=== PATIENT | female | born 1960 | race Caucasian/White ===

== ENCOUNTER → 2017-06-08 | Outpatient (CLI) | payer BC ==
[~2017-06-08] MED LIST: ASPI81TA28 PO; CRAN1CAP15 PO; GLUCTAB7 PO; LISI-725 PO; MONT1TAB5 PO; MULTTAB58 PO; NAPR1TAB9 PO; OMEP40CA PO; SIMV20TA2 PO
[2017-06-08 13:08] LABS: BLOOD UREA NITROGEN 17 mg/dl (7-18); CREATININE 0.84 mg/dl (0.60-1.20); GLUCOSE 93 mg/dl (70-99)
[2017-06-08 13:09] LABS: ALT/SGPT 28 U/L (12-78); BUN/CREATININE RATIO 19.6 (10-20); CALCIUM 9.7 mg/dl (8.5-10.1); CARBON DIOXIDE 29 mmol/L (21-32); CHLORIDE 107 mmol/L (98-107); CHOLESTEROL 173 mg/dl (0-200); POTASSIUM 4.4 mmol/L (3.5-5.1); SODIUM 140 mmol/L (136-145); TRIGLYCERIDES 128 mg/dl (0-150); VERY LOW DENSITY LIPOPROT CALC 26 mg/dl
[2017-06-08 13:10] LABS: ALB/GLOB RATIO 1.1 (0.9-2); ALKALINE PHOSPHATASE 81 U/L (45-117); AST/SGOT 19 U/L (15-37); CHOLESTEROL/HDL RATIO 3.7; HDL CHOLESTEROL 47 mg/dl; LDL CHOLESTEROL CALCULATED 100 mg/dl
== END | disposition home or self-care (01) ==
LOC: C.LABPVFM 08:54
PROVIDERS: ATTEND Family Medicine
DX: Z11.59 Encounter for screening for other viral diseases (principal); I10 Essential (primary) hypertension; E78.5 Hyperlipidemia, unspecified; K21.9 Gastro-esophageal reflux disease without esophagitis

== ENCOUNTER → 2017-06-08 | Outpatient (CLI) | payer BC | END | disposition home or self-care (01) | LOC: C.PAPS 13:10 | PROVIDERS: ATTEND Family Medicine | DX: Z12.4 Encounter for screening for malignant neoplasm of cervix (principal) ==

== ENCOUNTER → 2017-07-09 | Outpatient (CLI) | payer BC ==
--- NOTE | 2017-07-12 13:34 | MAMMOGRAPHY REPORT ---
BILATERAL DIGITAL SCREENING MAMMOGRAM TOMOSYNTHESIS WITH CAD: 07/09/2017 CLINICAL HISTORY: Routine screening. Patient has no complaints. TECHNIQUE: Breast tomosynthesis in addition to standard 2D mammography was performed. Current study was also evaluated with a Computer Aided Detection (CAD) system. COMPARISON: Comparison is made to exams dated: 06/11/2015 mammogram, 05/11/2013 mammogram, 02/09/2012 m ammogram, 02/05/2011 ultrasound, 02/05/2011 mammogram, and 01/26/2011 mammogram - [facility] enter. BREAST COMPOSITION: There are scattered areas of fibroglandular density in both breasts. FINDINGS: No suspicious masses, calcifications, or areas of architectural distortion are noted in ei ther breast. There has been no significant interval change compared to prior exams. IMPRESSION: ACR BI-RADS CATEGORY 1: NEGATIVE There is no mammographic evidence of malignancy. A 1 year screening mammogram is recommended. The pa tient will receive written notification of the results. Approximately 10% of breast cancers are not detected with mammography. A negative mammographic report should not delay biopsy if a clinically suggestive mass is present. Ellie Smith M.D. ah/:07/09/2017 16:07:35 Vending Machine Servicer: Kassy DOUGHERTY(Charissa)(James), [facility] letter sent: Normal 1/2 BI-RADS Code: ACR BI-RADS Category 1: Negative
== END | disposition home or self-care (01) ==
LOC: C.MAMM 15:34
PROVIDERS: ATTEND Family Medicine
DX: Z12.31 Encounter for screening mammogram for malignant neoplasm of breast (principal)

== ENCOUNTER 2019-07-18 07:23 | Inpatient (IN) ==
--- NOTE | 2019-06-20 16:16 | PAT Medication Instructions ---
Medication Instructions Date of Service June 20, 2019 Home Medications Medication Instructions Recorded meloxicam 7.5 mg tablet 7.5 mg PO DAILY #90 tab 05/02/19 simvastatin 20 mg tablet 20 mg PO HS #90 tab 05/02/19 cholecalciferol (vitamin D3) 1,000 unit capsule 1,000 units PO DAILY cranberry concentrate-ascorbic acid 140 mg-100 mg capsule 1 cap PO DAILY multivitamin tablet 1 tab PO DAILY meloxicam 7.5 mg tablet 7.5 mg PO DAILY simvastatin 20 mg tablet 20 mg PO HS aspirin [Aspir-81] 81 mg PO Q2D lisinopril 10 mg PO QAM omeprazole 20 mg PO QAM Continue as directed aspirin [Aspir-81] 81 mg PO Q2D ASK your surgeon for instructions meloxicam 7.5 mg tablet 7.5 mg PO DAILY STOP taking 2 weeks before surgery (or as soon as possible if surgery is within 2 weeks) cranberry concentrate-ascorbic acid 140 mg-100 mg capsule 1 cap PO DAILY DO NOT take the morning of surgery cholecalciferol (vitamin D3) 1,000 unit capsule 1,000 units PO DAILY multivitamin tablet 1 tab PO DAILY lisinopril 10 mg PO QAM Take morning of surgery With a small sip of water, OTHERWISE NOTHING TO EAT OR DRINK AFTER MIDNIGHT: omeprazole 20 mg PO QAM Take evening before surgery simvastatin 20 mg tablet 20 mg PO HS Other Notes If you have any questions please call us at [phone] or [phone] or [phone] or [phone]
--- NOTE | 2019-06-21 11:26 | Anesthesiology Consultation ---
Date of Service June 21, 2019 Assessment & Plan (1) Encounter for pre-operative examination: Chart Review Chart Review: Pending: Refer to Additional Notes / Consult section (preop testing) and Patient seen in Pre Admission Testing Teaching & Discussion Pre-Anesthesia Teaching/Discussion Notes: Instructed NPO after midnight before surgery,except medications with 15 cc of water. Medication instructions provided according to the PAT guidelines. History Surgery Operation Date: 07/18/19 07:00 Proposed Procedures p Right Total Knee Arthroplasty - Jamin Nogueira DO Operation Date: 07/21/19 13:50 Proposed Procedures p Right Total Knee Arthroplasty - Jamin Nogueira DO Height/Weight Height: 5 ft 2 in Weight: 108.6 kg Allergies Allergy/AdvReac Type Severity Reaction Status Date / Time Penicillins Allergy Unknown Childhood- Verified 06/21/19 11:25 unknown reaction Medications Home Medications Medication Instructions Recorded Confirmed Last Taken cholecalciferol (vitamin D3) 1,000 1,000 units PO DAILY 04/03/19 06/14/19 Unknown unit capsule cranberry concentrate-ascorbic 1 cap PO DAILY cap 04/03/19 06/14/19 Unknown acid 140 mg-100 mg capsule multivitamin tablet 1 tab PO DAILY 04/03/19 06/14/19 Unknown meloxicam 7.5 mg tablet 7.5 mg PO DAILY #90 tab 05/02/19 06/14/19 Unknown simvastatin 20 mg tablet 20 mg PO HS #90 tab 05/02/19 06/14/19 06/13/19 aspirin [Aspir-81] 81 mg PO Q2D 06/14/19 06/14/19 Unknown lisinopril 10 mg PO QAM 06/14/19 06/14/19 06/14/19 omeprazole 20 mg PO QAM 06/14/19 06/14/19 06/14/19 Past Medical History Medical History Acid reflux controlled Hyperlipidemia Hypertension Morbid obesity Osteoarthritis Schatzki's ring Exercise / Class Metabolic Activity II 4-5 Yardwork/Stairs/Walk up hill Past Family History Family History Aunt Family history of colon cancer Other Family history of heart disease Past Surgical History Surgical History History of appendectomy History of section History of colonoscopy History of endoscopy History of gynecologic surgery FOR ECTOPIC History of laparoscopic cholecystectomy History of urologic surgery URETHRAL DILATION Past Anesthesia History No Hx of Anesthesia Complications and No Family Hx of Anesthesia Complications History of PONV No Hx of PONV and No Hx of Motion Sickness Social History Smoking Status: Never smoker Do You Dip or Chew Tobacco: No Hx Alcohol Use: Yes alcohol intake frequency: a few times a month Hx Substance Use: No substance use type: does not use Review of Systems Reflux controlled. Patient denies chest pain, shortness of breath, dyspnea on exertion, cough, wheezing, palpitations. Physical Exam Vital Signs VITALS BP 113/77 P 67 TEMP 98.2 SP02 94%RA RESP 16 PHYSICAL Full neck and c-spine range of motion. Full TMJ range of motion. TMD 2.5 finger breaths Mallampati Score 3 Dentition: missing molars, upper right side tooth cap Lungs: clear throughout to auscultation Cardiac: regular rate and rhythm, no murmurs noted Spine: normal Carotid arteries: negative bruit Extremities: no edema Thick neck
--- NOTE | 2019-06-21 12:45 | XRay Report ---
XR chest Pre-admission PA/Lat CLINICAL HISTORY: Preoperative chest COMPARISON STUDY: No previous studies for comparison. FINDINGS: The cardiac and mediastinal contours are normal. There is no evidence of focal pulmonary co nsolidation. There is no evidence of failure. No pleural effusions are visualized.[ IMPRESSION: No active disease in the chest. Electronically signed by: Juan Riley M.D. 06/21/2019 12:43 PM
[2019-06-22 17:25] LABS: Basophils # (auto) 0.04 K/uL (0-0.2); Basophils % (auto) 0.6 %; Eosinophils # (auto) 0.25 K/uL (0-0.5); Eosinophils % (auto) 3.6 %; Hematocrit (blood only) 43.4 % (37-47); Hemoglobin 14.7 g/dL (12.0-16.0); Immature Granulocytes # (auto) 0.02 K/uL (0.00-0.02); Immature Granulocytes % (auto) 0.3 %; Lymphocytes # (auto) 2.06 K/uL (1.2-3.4); Lymphocytes % (auto) 29.6 %; Mean Corpuscular Hemoglobin 30.9 pg (25-34); Mean Corpuscular Hgb Conc 33.9 g/dL (32-36); Mean Corpuscular Volume 91.4 fL (80-100); Mean Platelet Volume 10.6 fL (7.4-10.4); Monocytes # (auto) 0.41 K/uL (0.11-0.59); Monocytes % (auto) 5.9 %; Neutrophils # (auto) 4.18 K/uL (1.4-6.5); Platelet Count 270 K/uL (130-400); RDW Coefficient of Variation 13.5 % (11.5-14.5); RDW Standard Deviation 44.9 fL (36.4-46.3); Red Blood Count 4.75 M/uL (4.2-5.4); White Blood Count 6.96 K/uL (4.8-10.8)
[2019-06-22 17:40] LABS: INR 0.9 (0.9-1.1); Prothrombin Time 9.7 Seconds (9.0-12.0)
[2019-06-22 17:45] LABS: BUN Creatinine Ratio 22.7 (10-20); Calcium 9.5 mg/dl (8.5-10.1); Creatinine Clr Calc Pharmacy 77.4 ml/min; Est GFR (African American) 79.1; Est GFR (Non-African American) 68.2
--- NOTE | 2019-07-17 07:34 | History & Physical Report ---
Date of Service July 17, 2019 Assessment & Plan (1) Osteoarthritis of right knee: We will proceed with a right total knee arthroplasty. Postoperatively she will be started on aspirin for DVT prophylaxis. She will be kept overnight in the hospital for postoperative medical management. She plans to use energy physical therapy upon discharge. Present on Admission?: Yes History of Present Illness Chief Complaint: Primary osteoarthritis of the right knee Primary Care Provider: ANABELLA Marie Cathie is a pleasant 59-year-old female who is been dealing with chronic increasing right knee pain. X-rays and clinical examination have been diagnostic for primary osteoarthritis of the right knee. After failing years of conservative treatment, she has elected to proceed with a right total knee arthroplasty. Allergies Allergy/AdvReac Type Severity Reaction Status Date / Time Penicillins Allergy Unknown Childhood- Verified 06/21/19 11:25 unknown reaction Home Medications Home Medications Medication Instructions Recorded Confirmed Type cholecalciferol (vitamin D3) 1,000 1,000 units PO DAILY 04/03/19 06/14/19 History unit capsule cranberry concentrate-ascorbic 1 cap PO DAILY cap 04/03/19 06/14/19 History acid 140 mg-100 mg capsule multivitamin tablet 1 tab PO DAILY 04/03/19 06/14/19 History meloxicam 7.5 mg tablet 7.5 mg PO DAILY #90 tab 05/02/19 06/14/19 Rx simvastatin 20 mg tablet 20 mg PO HS #90 tab 05/02/19 06/14/19 Rx aspirin [Aspir-81] 81 mg PO Q2D 06/14/19 06/14/19 History lisinopril 10 mg PO QAM 06/14/19 06/14/19 History omeprazole 20 mg PO QAM 06/14/19 06/14/19 History Past Med/Surg History Medical History Acid reflux controlled Hyperlipidemia Hypertension Morbid obesity Osteoarthritis Schatzki's ring Surgical History History of appendectomy History of section History of colonoscopy History of endoscopy History of gynecologic surgery FOR ECTOPIC History of laparoscopic cholecystectomy History of urologic surgery URETHRAL DILATION Family History Aunt Family history of colon cancer Other Family history of heart disease Social History Preferred Language: Mongolian Communication Ability: Effective Ambulatory Service Representative Required: No Beliefs That Will Affect Care: None Current Living Situation: Spouse Feels Safe at Home: Yes Smoking Status: Never smoker Hx Alcohol Use: Yes Hx Substance Use: No Review of Systems All systems reviewed & are unremarkable except as noted in HPI & below Physical Exam Constitutional: WD/WN, vitals as above Eyes: PERRL, conjunctivae normal, anicteric sclerae ENMT: external ear and nose normal, oropharynx normal Neck: trachea midline, no thyromegaly Respiratory: normal respiratory effort Cardiovascular: RRR, no murmur, no edema Gastrointestinal (Abdomen): normal bowel sounds, soft, nontender, no hepatosplenomegaly Musculoskeletal: On physical examination of the right knee there is a trace effusion. There is near full range of motion and no evidence of instability. There is significant tenderness palpation along the medial and lateral joint lines and over the distal femoral condyles. Psychiatric: A+Ox3, euthymic affect Results & Data Diagnostic Findings Radiographs of the right knee demonstrate advanced osteoarthritis with joint s pace narrowing osteophyte formation and [id number]-[id number] articulation.
[~2019-07-18 07:23] MED LIST changes: +ACETAMINOPHEN 500 MG TAB PO SCH; -ASPI81TA28 PO; +BUPIVACAINE 0.5 % 5 MG/1 ML PF 10ML VIAL ONE; +CEFAZOLIN 2000MG 2,000 MG/15 ML SYR IV SCH; -CRAN1CAP15 PO; +EPINEPHrine INJ 1 MG/ML AMP ONE; +GABAPENTIN 600 MG DOSE PO SCH; -GLUCTAB7 PO; -LISI-725 PO; +LR 500ML BOLUS, THEN 15ML/HR IV SCH; +LR 60ML/HR IV SCH; -MONT1TAB5 PO; -MULTTAB58 PO; -NAPR1TAB9 PO; -OMEP40CA PO; +ROPIVACAINE 0.5% 5 MG/ML 30 ML VIAL ONE; +ROPIVACAINE 0.5% HCL/PF 150 MG, BUPIVACAINE 0.5% MPF 30 ML, EPINEPHrine 30MG/30ML (OR U... INSTIL SCH; -SIMV20TA2 PO; +TRANEXAMIC ACID 1,000 MG **IV Intra-op IV SCH; +TRANEXAMIC ACID 1,000 MG **IV Pre-op IV SCH
[2019-07-18] MEDS ORDERED: PROPOFOL IV EMULSION 10 MG/ML 20 ML VIAL IV ONE (08:07)
[2019-07-18] MEDS ORDERED: fentaNYL citrate 100 MCG/2 ML VIAL ONE (08:07)
[2019-07-18] MEDS ORDERED: LIDOCAINE HCL 2% 2 ML VIAL/AMP(20MG/ML) INFIL ONE (08:07)
[2019-07-18] MEDS ORDERED: MIDAZOLAM HCL 1 MG/ML 2ML VIAL ONE (08:08)
--- NOTE | 2019-07-18 08:24 | History & Physical Bridge Note ---
Date of Service July 18, 2019 History & Physical Bridge Note I have examined the patient, reviewed the History & Physical and in the interval since the performance of the History & Physical I have noted the following changes of clinical significance: no changes noted
[2019-07-18] MEDS ORDERED: ORTHO JOINT ANESTHETIC ONE (09:36)
[2019-07-18] MEDS ORDERED: ePHEDrine sulfate 50 MG/ML AMP ONE (10:16)
--- NOTE | 2019-07-18 11:22 | Operative Report ---
Post Operative Report Pre & Post Diagnosis Operation Date: 07/18/19 09:50 Pre-Op Diagnosis: RIGHT KNEE DEGENERATIVE JOINT DISEASE Post-Op Diagnosis: RIGHT KNEE DEGENERATIVE JOINT DISEASE Operation Date: 07/21/19 13:50 <No data on this case meets the specified criteria> I identified the patient and participated in the time-out.: Yes Procedure Operation Date: 07/18/19 09:50 Actual Procedures p Right Total Knee Arthroplasty(Right) - Jamin Nogueira DO Operation Date: 07/21/19 13:50 <No data on this case meets the specified criteria> Surgeon Jamin Nogueira DO Primary Montessori Teacher Jamin Durán PAC Estimated Blood Loss 20 Findings Consistent with Post-Op Diagnosis Specimens Right femoral and tibial bone Complications none Disposition Disposition: Recovery Room Indications Venus is a pleasant 72-year-old female who presented my office with complaints of chronic increasing right knee pain. X-rays and clinical examination were diagnostic for advanced osteoarthritis of the right knee. After failing con servative treatment, she elected to proceed with a right total knee arthroplasty. Description of Procedure Implants used: I used a [employer]omet Vanguard total knee arthroplasty system with a size 60 femur, 63 tibia, 28 patella, and a size 16 PS plus polyethylene bearing. All components were cemented in place with Palacos G cement. The patient arrived [facility] for the above procedure. There were seen in the preoperative holding area and the operative extremity was identified and signed. There were given a preoperative antibiotic, a spinal anesthetic and an adductor nerve block. There were taken back to the operating room and laid on the table in supine position. There were given basic sedation. The operative knee was then prepped and draped in sterile fashion. A timeout was done, and the patient and the operative extremity was properly identified. A midline incision was made directly over the patella. Dissection was taken down to the extensor mechanism. A subvastus arthrotomy was used. The medial retinaculum was released and the fat pad was mostly left intact. The knee was flexed and the ACL, PCL, and meniscus were removed. A drill was sent down the center of the femoral canal followed by an intramedullary shrein. Off that sherin a distal femoral cutting block was placed. 9 mm was resected off the distal femur at 5 of valgus. A posterior referencing AP sizing guide was then placed on the distal femur. The femur measured to be a size 60. 2 drill holes were placed in 3 of external rotation. A 4-in-1 cutting block was then impacted into place. Anterior posterior and chamfer cuts were then made. The posterior stabilizing box guide was then impacted into place and the box was resected for the posterior stabilizing component. The proximal tibia was then exposed. A drill was sent down the center of the tibial canal followed by an intramedullary sherin. Off that sherin a proximal tibial resection guide was placed. The proximal tibia was then resected. The tibia measured to be a size 63. The tibial plate was then placed in the appropriate rotation and the tibia was punched. The posterior aspect of the knee was then opened up and any additional meniscus fragments and osteophytes were removed. Trial components were then placed. I used a size 16 PS plus polyethylene insert. The knee was brought through a full range of motion and felt to be stable. The patella was then everted and 8 mm was resected off the posterior aspect of the patella. The patella measured to be a size 28. 3 peg holes were then drilled. A trial patella was placed. The knee was once again brought through a full range of motion and felt to be stable. Trial components were then removed. The surrounding soft tissues were injected with 100 cc of an orthopedic pain control cocktail. All components were then cemented into place with Palacos G cement. The final polyethylene insert was then snapped into place and the anterior bar was locked. Once cement was dry the tourniquet was deflated. Hemostasis was obtained. A dilute betadyne lavage was then done for 3 minutes. The joint was then irrigated with normal saline solution. The subvastus arthrotomy was then closed with #1 Vicryl suture. The skin was closed with 2-0 Vicryl, 3-0V lock suture, and vijay. A soft compressive dressing was placed. The patient was then transferred to a hospital bed and taken to the postanesthesia care unit in stable condition. They tolerated the procedure well. I attest to the content of the Intraoperative Record and any orders documented therein. Any exceptions are noted below.
--- NOTE | 2019-07-18 12:34 | XRay Report ---
XR knee RT 1 or 2V routine CLINICAL HISTORY: Postoperative evaluation. COMPARISON: Knee radiographs February 08, 2019. FINDINGS: Alignment of the total right knee arthroplasty is anatomic. There is no fracture or unexpe cted radiopaque foreign body. There are skin vijay. IMPRESSION: Expected findings following total right knee arthroplasty. Electronically signed by: Loi Jorgensen M.D. 07/18/2019 12:32 PM
[2019-07-18] MEDS ORDERED: OXYCODONE HCL IR 5 MG TAB (IMMEDIATE RELEASE) PO PRN (13:06)
[2019-07-18] MEDS ORDERED: MAGNESIUM HYDROXIDE SUSP 30 ML UDC PO PRN (13:06)
[2019-07-18] MEDS ORDERED: ONDANSETRON INJ 2 MG/ML 2 ML VIAL IV PRN (13:06)
[2019-07-18] MEDS ORDERED: NALOXONE HCL 0.4 MG/1 ML VIAL/CARP IV PRN (13:06)
[2019-07-18] MEDS ORDERED: METOCLOPRAMIDE HCL INJ 5 MG/ML 2 ML VIAL IV PRN (13:06)
[2019-07-18] MEDS ORDERED: BISACODYL 10 MG SUPP PR PRN (13:06)
[2019-07-18] MEDS ORDERED: HYDROmorphone INJ 0.5 MG/0.5 ML SYR IV PRN (13:06)
[2019-07-18] MEDS: SODIUM CHLORIDE 0.9% 1000ML 1,000 ML IV SCH (13:53)
[2019-07-18] MEDS: ACETAMINOPHEN 500 MG TAB PO SCH ×2 (14:03→21:14)
[2019-07-18] MEDS: KETOROLAC 30 MG/ML VIAL IV SCH ×2 (14:04→21:15)
--- NOTE | 2019-07-18 14:05 | Anesthesiology Progress Note ---
Date of Service July 18, 2019 Anesthesia Post Procedure Vital Signs Vital Signs: Temp Pulse Pulse Pulse Resp BP BP 07/18/19 13:27 36.6 C 18 112/73 07/18/19 13:00 36.6 C 76 17 113/68 07/18/19 12:45 36.6 C 75 23 101/62 07/18/19 12:35 79 16 108/67 07/18/19 12:25 73 20 111/58 L 07/18/19 12:13 36.7 C 07/18/19 12:11 72 20 07/18/19 12:10 72 22 112/59 L 07/18/19 12:05 73 21 105/57 L 07/18/19 12:01 75 21 07/18/19 12:00 79 21 103/56 L 07/18/19 11:56 78 21 07/18/19 11:55 72 23 104/56 L 07/18/19 11:51 72 22 07/18/19 11:50 75 24 100/64 07/18/19 11:49 36.9 C 76 76 24 106/58 L 106/58 L 07/18/19 08:04 36.7 C 88 18 138/86 Pulse Ox 07/18/19 13:27 95 07/18/19 13:00 97 07/18/19 12:45 96 07/18/19 12:35 96 07/18/19 12:25 96 07/18/19 12:13 96 07/18/19 12:11 97 07/18/19 12:10 97 07/18/19 12:05 97 07/18/19 12:01 97 07/18/19 12:00 95 07/18/19 11:56 95 07/18/19 11:55 95 07/18/19 11:51 96 07/18/19 11:50 96 07/18/19 11:49 96 07/18/19 08:04 98 Pain Intensity Right Knee: Pain Intensity: 0 Transfer of Care Handoff Completed per policy Notes Mental Status: alert / awake / arousable and participated in evaluation Patient Amnestic to Procedure: Yes Nausea / Vomiting: adequately controlled Pain: adequately controlled Airway Patency, RR, SpO2: stable & adequate BP & HR: stable & adequate Hydration State: stable & adequate Neuraxial Anesthesia: was administered and sensory block is resolving Anesthetic Complications: no major complications apparent and Pt Satisfied with anesthetic care
[2019-07-18] MEDS: CEFAZOLIN 2000MG 2,000 MG/15 ML SYR IV SCH (17:16)
[2019-07-18] MEDS ORDERED: SENNA 8.6 MG TAB PO SCH (21:00)
[2019-07-18] MEDS ORDERED: SIMVASTATIN 20 MG TAB PO SCH (21:00)
[2019-07-18] MEDS: DOCUSATE SODIUM 100 MG CAP PO SCH (21:15)
[2019-07-18] MEDS: ASPIRIN 81 MG ECTAB PO SCH (21:15)
[2019-07-19] MEDS: SODIUM CHLORIDE 0.9% 1000ML 1,000 ML IV SCH (00:33)
[2019-07-19] MEDS: KETOROLAC 30 MG/ML VIAL IV SCH ×2 (02:16→08:10)
[2019-07-19] MEDS: CEFAZOLIN 2000MG 2,000 MG/15 ML SYR IV SCH (02:16)
[2019-07-19 05:24] LABS: Hematocrit (blood only) 34.9 % (37-47); Hemoglobin 11.9 g/dL (12.0-16.0); Mean Corpuscular Hemoglobin 30.3 pg (25-34); Mean Corpuscular Hgb Conc 34.1 g/dL (32-36); Mean Corpuscular Volume 88.8 fL (80-100); Mean Platelet Volume 9.7 fL (7.4-10.4); Platelet Count 212 K/uL (130-400); RDW Coefficient of Variation 13.5 % (11.5-14.5); RDW Standard Deviation 44.4 fL (36.4-46.3); Red Blood Count 3.93 M/uL (4.2-5.4)
[2019-07-19] MEDS: ACETAMINOPHEN 500 MG TAB PO SCH (05:40)
[2019-07-19 05:55] LABS: Calcium 8.5 mg/dl (8.5-10.1); Creatinine Clr Calc Pharmacy 87.2 ml/min; Est GFR (African American) 92.1; Est GFR (Non-African American) 79.4; Potassium 4.2 mmol/L (3.5-5.1)
--- NOTE | 2019-07-19 06:01 | Orthopedic Progress Note ---
Date of Service July 19, 2019 Assessment & Plan (1) Osteoarthritis of right knee: Overall she is doing very well. She is not having much pain in the right knee. She will be seen by physical therapy this morning for ambulation and range of motion exercises. She is on aspirin for DVT prophylaxis. She can be discharged home later today. She will follow-up with orthopedics in 2 weeks. Present on Admission?: Yes Subjective Cathie was seen and examined at bedside this morning. Overall she is doing well. She was able to ambulate around the nurses station last night. Her pain is controlled and she has no complaints. Physical Exam Musculoskeletal: On physical examination of the right knee, the dressing is clean and dry. Her leg lengths are equal. She is active dorsiflexion and plantarflexion of the right ankle. Sensations intact. Results & Data Vital Signs (Past 12 Hours) Vital Signs Temp Pulse Resp BP BP Pulse Ox 07/19/19 02:18 36.6 C 68 15 97/63 L 97 07/18/19 22:55 36.7 C 71 16 102/66 94 07/18/19 19:52 36.5 C 74 24 110/74 94 Laboratory Results H & H 06/22/19 07/19/19 Range/Units 13:25 04:38 Hgb 14.7 11.9 L (12.0-16.0) g/dL Hct 43.4 34.9 L (37-47) % Coagulation 06/22/19 Range/Units 13:25 INR 0.9 (0.9-1.1) Diagnostic Findings Postoperative x-rays of the right knee show the prosthesis to be in anatomic alignment without any evidence of fracture, dislocation, or loosening. PG Care Time/CCT Total # of Minutes Spent Total Time Spent with Patient: Total time spent is greater than 50% in coordination of care (as documented) at patient's floor/unit and/or counseling patient:
--- NOTE | 2019-07-19 06:04 | Discharge Summary ---
Date of Service July 19, 2019 Admission HPI Per Admitting Provider Cathie is a pleasant 59-year-old female who is been dealing with chronic increasing right knee pain. X-rays and clinical examination have been diagnostic for primary osteoarthritis of the right knee. After failing years of conservative treatment, she has elected to proceed with a right total knee arthroplasty. Principal Diagnosis Right total knee arthroplasty Discharge Data Allergies Allergy/AdvReac Type Severity Reaction Status Date / Time Penicillins Allergy Unknown Childhood- Verified 07/18/19 08:02 unknown reaction Consultations 07/18/19 13:06 Consult Case Management - Discharge Planning Routine Procedures Performed Operation Date: 07/18/19 09:50 Actual Procedures p Right Total Knee Arthroplasty(Right) - Jamin Nogueira DO Operation Date: 07/21/19 13:50 <No data on this case meets the specified criteria> Ordered Studies 07/18/19 05:00 US - OR guided needle placemen Routine 07/18/19 09:29 US - OR guided needle placemen Routine Hospital Course (1) Osteoarthritis of right knee: On July 18, 2019 Cathie arrived at [facility] and underwent a right total knee arthroplasty without complication. She had a spinal a nesthetic and a right abductor nerve block. Postoperatively she was started on aspirin for DVT prophylaxis and discharged to general orthopedic floors. Her hospital course was uneventful. On postop day #1 her H&H was stable and her pain was well controlled. She was able to participate well with physical therapy doing ambulation and range of motion exercises. She was then [facility] with [facility]. She will follow-up with orthopedics in 2 weeks. Total Time Total Time Spent Total Time Spent (In Minutes): 20 Discharge Plan Discharge Items Patient Disposition: Home - Home Health Services Reason For Visit: RIGHT KNEE DEGENERATIVE JOINT DISEASE Discharge Diagnosis: Right total knee arthroplasty Activity: As commented below Non-emergency contact: Surgeon Call non-emergency contact if: your wound has increased redness and your wound has increased drainage Follow-up/Referrals: Janki Santillan CRNP [Primary Care Provider] - Diet: Regular Addtl Attending Provider Instructions: Activity and Therapy Recommendations: * If you are using [facility] then therapy will be provided at your home until they feel you have accomplished all of your goals. * If you are using [facility] then Physical Therapy will be provided until they feel you are ready to start Outpatient Physical Therapy. * If you are not using home therapy then Outpatient Physical Therapy should start about 3-5 days from your day of surgery. Therapy will last about 6-10 weeks * It is important not to put a pillow under your knee when you are relaxing or sleeping. It is just as important to make sure you are getting your knee perfectly straight as it is to regain your knee bend. * You were shown a series of exercises in the hospital. Do these exercises three times each day including the exercises you were shown in physical therapy. * Get up and walk several times each day. For the first four weeks, try not to stand or walk for more than one hour at a time. If you do stand or walk for more than one hour, you will not hurt anything, but your leg will likely swell. * As you feel comfortable, you may change from the walker or crutches to a cane and then to independent walking. Medications: * Narcotic You will likely be sent home from the hospital with a prescription for the narcotic pain medication that worked best throughout your stay. * Aspirin Most patients will be required to take Aspirin 81mg twice a day for 6 weeks after surgery. This is obtained [id number] and a prescription is not necessary. * Other medications may be prescribed for specific circumstances. If you have any questions, please call the office at . * Resume previous home medications unless otherwise instructed TEDs/Elastic Stockings: The white elastic stockings help limit swelling and prevent blood clots from forming in your legs.~ The more you wear them, the more they work. Wear them for six weeks. Dressing Care: If the incision is not draining then you may leave the vijay open to air. If there is a little bit of drainage or if the vijay are getting stuck on your clothing then cover the incision with a dry dressing. The vijay will be removed at your 2 week follow-up appointment. Showering: You may shower 5 days from the day of surgery. Let the soapy shower water run over the vijay and pat them dry. Do not scrub or soak the incision. Things To Watch For: * Drainage from the incision site that occurs more than one week after your surgery. * Increased redness at the incision site. * Fever above 102 degrees Fahrenheit. * Unusual chest pain or shortness of breath. * Call [facility] at with any of the above problems Follow-Up Visit: Follow-up with Dr. Nogueira 2-3 weeks after your day of surgery. An appointment was probably scheduled when you signed-up for surgery in the office. If you have any questions call Office Instructions: More detailed instructions as well as Frequently Asked Questions were provided in a folder by our office when you signed-up for surgery. Please review these instructions when you get home. If you have any further questions or concerns, please feel free to call the office at [phone] Pending Studies at Discharge: No Stand-Alone Forms: [facility], Smoking Cessation Medications and DC Order Prescriptions: New oxycodone 5 mg Tablet 5 mg PO Q4H PRN (Reason: pain) Qty: 30 RF: 0 Continued meloxicam 7.5 mg tablet 7.5 mg PO DAILY Qty: 90 RF: 1 simvastatin 20 mg tablet 20 mg PO HS Qty: 90 RF: 1 Super Cranberry 140-100 mg capsule 1 cap PO DAILY RF: 0 multivitamin [Multiple Vitamins] tablet 1 tab PO DAILY RF: 0 cholecalciferol (vitamin D3) 1,000 unit capsule 1,000 units PO DAILY RF: 0 lisinopril 10 mg tablet 10 mg PO QAM RF: 0 omeprazole 20 mg capsule,delayed release(DR/EC) 20 mg PO QAM RF: 0 Changed aspirin [Aspir-81] 81 mg Tablet,Delayed Release (Dr/Ec) 81 mg PO BID Qty: 0 RF: 0 Discharge Orders: Discharge Order (Routine); Ordered 07/19/19 Ordered By: Jamin Nogueira Admission Data Admit Date/Time: 07/18/19 11:51 Attending Provider: Jamin Nogueira Admit Provider: Jamin Nogueira Primary Care Provider: Janki Santillan
[2019-07-19 06:53] VITALS: PULSE 63; TEMP 97.7; O2SAT 96
--- NOTE | 2019-07-19 08:07 | Anesthesiology Progress Note ---
Date of Service July 19, 2019 Anesthesia Post Procedure Vital Signs Vital Signs: Temp Pulse Pulse Pulse Resp BP BP 07/19/19 06:53 36.5 C 63 17 100/70 07/19/19 02:18 36.6 C 68 15 97/63 L 07/18/19 22:55 36.7 C 71 16 07/18/19 19:52 36.5 C 74 24 07/18/19 16:35 36.7 C 76 16 07/18/19 15:33 36.7 C 79 18 07/18/19 14:24 36.5 C 81 18 07/18/19 13:27 36.6 C 18 07/18/19 13:00 36.6 C 76 17 07/18/19 12:45 36.6 C 75 23 07/18/19 12:35 79 16 07/18/19 12:25 73 20 07/18/19 12:13 36.7 C 07/18/19 12:11 72 20 07/18/19 12:10 72 22 112/59 L 07/18/19 12:05 73 21 105/57 L 07/18/19 12:01 75 21 07/18/19 12:00 79 21 103/56 L 07/18/19 11:56 78 21 07/18/19 11:55 72 23 104/56 L 07/18/19 11:51 72 22 07/18/19 11:50 75 24 100/64 07/18/19 11:49 36.9 C 76 76 24 106/58 L BP Pulse Ox 07/19/19 06:53 96 07/19/19 02:18 97 07/18/19 22:55 102/66 94 07/18/19 19:52 110/74 94 07/18/19 16:35 116/60 95 07/18/19 15:33 113/70 95 07/18/19 14:24 106/66 95 07/18/19 13:27 112/73 95 07/18/19 13:00 113/68 97 07/18/19 12:45 101/62 96 07/18/19 12:35 108/67 96 07/18/19 12:25 111/58 L 96 07/18/19 12:13 96 07/18/19 12:11 97 07/18/19 12:10 97 07/18/19 12:05 97 07/18/19 12:01 97 07/18/19 12:00 95 07/18/19 11:56 95 07/18/19 11:55 95 07/18/19 11:51 96 07/18/19 11:50 96 07/18/19 11:49 106/58 L 96 Pain Intensity Right Knee: Pain Intensity: 2 Notes Mental Status: alert / awake / arousable Nausea / Vomiting: adequately controlled Pain: adequately controlled Airway Patency, RR, SpO2: stable & adequate BP & HR: stable & adequate Hydration State: stable & adequate Neuraxial Anesthesia: was administered and sensory block resolved Anesthetic Complications: no major complications apparent and Pt Satisfied with anesthetic care
[2019-07-19] MEDS: ASPIRIN 81 MG ECTAB PO SCH (08:14)
[2019-07-19] MEDS: DOCUSATE SODIUM 100 MG CAP PO SCH (08:14)
[2019-07-19] MEDS ORDERED: PANTOprazole 40 MG TAB PO SCH (09:00)
[2019-07-19] MEDS ORDERED: LISINOPRIL 10 MG TAB PO SCH (09:00)
[2019-07-19] MEDS ORDERED: MULTIVITAMIN TAB PO SCH ×2 (09:00)
[2019-07-19 09:31] VITALS: BP 102/66
== END 2019-07-19 10:55 | disposition home or self-care (01) | DRG 470 ==
LOC: ASU 07:23 → 3E 11:51

== ENCOUNTER 2023-07-20 05:42 | Observation (INO) ==
--- NOTE | 2023-06-25 15:06 | PAT Medication Instructions ---
Medication Instructions Date of Service June 25, 2023 Home Medications Medication Instructions Recorded omeprazole 20 mg capsule,delayed 40 mg PO QAM #180 caps 01/08/22 release simvastatin 20 mg tablet 20 mg PO HS #90 tabs 11/11/22 lorazepam 0.5 mg tablet (Ativan) 0.5 mg PO BID PRN anxiety #60 tabs 11/20/22 venlafaxine 75 mg capsule,extended 75 mg PO QAM #90 caps 12/17/22 release 24 hr (Effexor XR) losartan 50 mg tablet 50 mg PO QAM #90 tabs 05/10/23 cholecalciferol (vitamin D3) 25 mcg (1,000 unit) capsule 1,000 units PO DAILY cranberry concentrate-ascorbic acid 140 mg-100 mg capsule (Super Cranberry) 1 cap PO DAILY multivitamin (Multiple Vitamins tablet) 1 tab PO DAILY aspirin 81 mg tablet,delayed release (Aspir-) 81 mg PO Q2D omeprazole 20 mg capsule,delayed release 40 mg PO QAM simvastatin 20 mg tablet 20 mg PO HS lorazepam 0.5 mg tablet (Ativan) 0.5 mg PO BID PRN venlafaxine 75 mg capsule,extended release 24 hr (Effexor XR) 75 mg PO QAM losartan 50 mg tablet 50 mg PO QAM ASK your prescriber and surgeon aspirin 81 mg tablet,delayed release (Aspir-) 81 mg PO Q2D STOP taking 2 weeks before surgery (or as soon as possible if surgery is within 2 weeks) cranberry concentrate-ascorbic acid 140 mg-100 mg capsule (Super Cranberry) 1 cap PO DAILY DO NOT take the morning of surgery cholecalciferol (vitamin D3) 25 mcg (1,000 unit) capsule 1,000 units PO DAILY multivitamin (Multiple Vitamins tablet) 1 tab PO DAILY losartan 50 mg tablet 50 mg PO QAM Take morning of surgery With a small sip of water, OTHERWISE NOTHING TO EAT OR DRINK AFTER MIDNIGHT: omeprazole 20 mg capsule,delayed release 40 mg PO QAM lorazepam 0.5 mg tablet (Ativan) 0.5 mg PO BID PRN(if needed) venlafaxine 75 mg capsule,extended release 24 hr (Effexor XR) 75 mg PO QAM Take evening before surgery simvastatin 20 mg tablet 20 mg PO HS lorazepam 0.5 mg tablet (Ativan) 0.5 mg PO BID PRN(if needed) Other Notes If you have any questions please call us at [phone] or [phone] or [phone] or [phone]
--- NOTE | 2023-06-30 10:31 | Anesthesiology Consultation ---
Date of Service June 30, 2023 Assessment & Plan (1) Encounter for pre-operative examination: - positive nasal MRSA swab, surgeon's office and infection control aware. Chart Review Chart Review: Acceptable Risk for Surgery and Patient seen in Pre Admission Testing Teaching & Discussion Pre-Anesthesia Teaching/Discussion Notes: Instructed NPO after midnight before surgery, except medications with 15 cc of water. Medication instructions provided according to the PAT guidelines. History Surgery Operation Date: 07/20/23 07:15 Proposed Procedures p C5-C6 Cervical Disc Arthroplasty - Alex Bishop MD Height/Weight Height: 5 ft 2 in Weight: 118.8 kg Allergies Allergy/AdvReac Type Severity Reaction Status Date / Time lisinopril Allergy Intermediate Angioadema Verified 06/24/23 13:08 sulfamethoxazole Allergy Intermediate ITCHINESS Verified 06/24/23 13:08 [From Bactrim] trimethoprim [From Bactrim] Allergy Intermediate ITCHINESS Verified 06/24/23 13:08 Penicillins Allergy Unknown Childhood- Verified 06/24/23 13:08 unknown reaction Medications Home Medications Medication Instructions Recorded Confirmed Last Taken cholecalciferol (vitamin D3) 25 1,000 units PO DAILY 04/03/19 06/24/23 10/27/21 mcg (1,000 unit) capsule cranberry concentrate-ascorbic 1 cap PO DAILY 04/03/19 06/24/23 10/27/21 acid 140 mg-100 mg capsule (Super Cranberry) multivitamin (Multiple Vitamins 1 tab PO DAILY 04/03/19 06/24/23 10/27/21 tablet) aspirin 81 mg tablet,delayed 81 mg PO Q2D 11/23/19 06/24/23 10/27/21 release (Aspir-) omeprazole 20 mg capsule,delayed 40 mg PO QAM #180 caps 01/08/22 06/24/23 Unknown release simvastatin 20 mg tablet 20 mg PO HS #90 tabs 11/11/22 06/24/23 Unknown lorazepam 0.5 mg tablet (Ativan) 0.5 mg PO BID PRN anxiety #60 tabs 11/20/22 06/24/23 Unknown venlafaxine 75 mg capsule,extended 75 mg PO QAM #90 caps 12/17/22 06/24/23 Unknown release 24 hr (Effexor XR) losartan 50 mg tablet 50 mg PO QAM #90 tabs 05/10/23 06/24/23 Unknown mupirocin 2 % topical ointment 1 applic topical TID MRSA POSITIVE 06/30/23 Unknown #50 grams Past Medical History Medical History (Updated 07/01/23 @ 11:36 by Carla Macias PA-C) Acid reflux controlled, stable per pt Anxiety Cervical stenosis of spine Hx MRSA infection R LEG, JUN 2019; positive nasal swab 06/30/23 Hyperlipidemia Hypertension controlled, stable per pt Schatzki's ring Patient denies h/o stroke, seizures, heart attack, heart failure, DM, blood clots/DVTs or blood transfusions. Exercise / Class Metabolic Activity III < 4 Walking/Shop/Light housework (denies chest discomfort or shortness of breath with usual activities, less than 8 steps in home) Past Family History Family History Aunt Family history of colon cancer Colorectal cancer Father Myocardial infarction Brother Myocardial infarction Family history of diabetes mellitus Other Family history of heart disease No family history of adverse response to anesthesia Denies family history of Ovarian cancer Breast cancer Past Surgical History Surgical History History of appendectomy History of section X 1 History of colonoscopy History of dilatation and curettage History of endoscopy WITH ESOPHAGEAL STRETCHING History of gynecologic surgery FOR ECTOPIC History of laparoscopic cholecystectomy History of total knee replacement RT History of urologic surgery URETHRAL DILATION [place] teeth removed Past Anesthesia History No Hx of Anesthesia Complications and No Family Hx of Anesthesia Complications History of PONV No Hx of PONV and No Hx of Motion Sickness Social History Smoking Status: Never smoker Do You Dip or Chew Tobacco: No Hx Alcohol Use: Yes alcohol intake frequency: other Alcohol Intake Frequency Comment: rarely Hx Substance Use: No substance use type: does not use Review of Systems Snoring, denies witnessed apneas. Patient denies chest pain, shortness of breath, dyspnea on exertion, fever, chills, cough, wheezing, or palpitations. Physical Exam Vital Signs Vitals BP 105/66 P 75 TEMP 98.4 SP02 95% on RA RESP 17 Physical Patient resting comfortably in chair in no acute distress, alert and oriented, responding appropriately throughout visit Limited cervical extension range of motion TMD <3 finger breadths, short thick neck Mallampati Score 3 Dentition: two caps, denies chipped or loose teeth, crowns, implants or bridges Lungs: normal respiratory effort. Good air movement, clear throughout to auscultation, no adventitious breath sounds Cardiac: regular rate and rhythm, no murmurs noted Carotid arteries: negative bruit bilat Lab Results Anesthesia Preop Results Results Anesthesia Widget: WBC 6.63 K/ul (4.8-10.8) 06/30/23 Hgb 14.5 g/dl (12.0-16.0) 06/30/23 Hct 42.9 % (37.0-47.0) 06/30/23 Plt 277 K/uL (130-400) 06/30/23 Na 138 mmol/L (136-145) 06/30/23 K 4.6 mmol/L (3.5-5.1) 06/30/23 Cl 104 mmol/L (98-107) 06/30/23 CO2 30 mmol/L (21-32) 06/30/23 BUN 23 mg/dl (6-23) 06/30/23 Creat 0.76 mg/dl (0.6-1.2) 06/30/23 Glucose Level 88 mg/dl (70-99(Fasting)) 06/30/23 PT 10.1 Seconds (9.0-12.0) 06/30/23 PTT 29.1 Seconds (21.0-31.0) 06/30/23 INR 0.9 (0.9-1.1) 06/30/23 HA1c 5.5 % (4.5-5.6) 05/17/23 Blood Type O Positive 06/30/23 Antibody Screen NEGATIVE 06/30/23 Testing Electrocardiogram Date: 06/30/23 NSR, rate 70 bpm Cervical Spine Date: 06/01/23 MRI 1. Moderate-sized central disc osteophyte complex at C5-C6 which indents the ventral aspect of the cord without cord signal abnormality. This results in moderate central canal stenosis. In addition, severe bilateral neural foraminal stenosis at C5-C6 level due to disc osteophyte complex and uncovertebral hypertrophy. 2. Otherwise, patent central canal. 3. Incidental note is made of retropharyngeal carotids at the C3-C4 level.
[2023-07-20] MEDS ORDERED: LR 60ML/HR IV SCH (06:00)
[2023-07-20] MEDS ORDERED: CeleBREX 200 MG CAP PO SCH (06:00)
[2023-07-20] MEDS ORDERED: ceFAZolin 2000MG 2,000 MG/15 ML SYR IV SCH (06:00)
[2023-07-20] MEDS ORDERED: LR 15ML/HR IV SCH (06:00)
[2023-07-20] MEDS ORDERED: LIDOCAINE 2% 2 ML VIAL/AMP(20MG/ML) INFIL ONE (06:41)
[2023-07-20] MEDS ORDERED: ONDANSETRON INJ 2 MG/ML 2 ML VIAL ONE ×2 (06:41→11:01)
[2023-07-20] MEDS ORDERED: MIDAZOLAM HCL 1 MG/ML 2ML VIAL ONE (06:41)
[2023-07-20] MEDS ORDERED: fentaNYL citrate PF 100 MCG/2 ML VIAL ONE ×2 (06:41→08:58)
[2023-07-20] MEDS ORDERED: PROPOFOL IV EMULSION 10 MG/ML 20 ML VIAL IV ONE (06:41)
[2023-07-20] MEDS ORDERED: DEXAMETHASONE SOD INJ 4 MG/ML VIAL ONE (06:41)
[2023-07-20] MEDS ORDERED: PROPOFOL IV EMULSION 10 MG/ML 100 ML VIAL IV ONE (06:44)
[2023-07-20] MEDS ORDERED: ePHEDrine sulfate 50 MG/ML AMP IV PRN (07:02)
[2023-07-20] MEDS ORDERED: ONDANSETRON INJ 2 MG/ML 2 ML VIAL IV PRN ×2 (07:02→13:46)
[2023-07-20] MEDS ORDERED: ATROPINE SULFATE 0.1 MG/ML 10ML SYR IV PRN (07:02)
--- NOTE | 2023-07-20 07:06 | History & Physical Bridge Note ---
Date of Service July 20, 2023 History & Physical Bridge Note I have examined the patient, reviewed the History & Physical and in the interval since the performance of the History & Physical I have noted the following changes of clinical significance: no changes noted
[2023-07-20] MEDS ORDERED: GELATIN SPONGE 12-7MM ONE (07:13)
[2023-07-20] MEDS ORDERED: THROMBIN 5000 UNITS KIT ONE (07:14)
[2023-07-20] MEDS ORDERED: VANCOMYCIN HCL 1000MG/20ML VIAL ONE (07:14)
[2023-07-20] MEDS ORDERED: SUCCINYLCHOLINE CHLORIDE 20 MG/ML 10 ML VIAL IV ONE (08:08)
[2023-07-20] MEDS ORDERED: ROCURONIUM BROMIDE 10 MG/ML 5 ML VIAL IV ONE (08:08)
[2023-07-20] MEDS ORDERED: ePHEDrine sulfate 50 MG/5 ML SYR ONE (08:10)
[2023-07-20] MEDS ORDERED: GLYCOPYRROLATE 0.2 MG/ML VIAL ONE (09:05)
[2023-07-20] MEDS ORDERED: SUGAMMADEX SODIUM 200 MG/2 ML VIAL IV ONE (10:44)
[2023-07-20] MEDS ORDERED: HYDROmorphone INJ 2 MG/ML SYR/VIAL ONE (10:54)
[2023-07-20] MEDS ORDERED: FLOSEAL HEMOSTATIC MATRIX 5ML TOP ONE (10:56)
--- NOTE | 2023-07-20 11:24 | Post Operative Brief Note ---
PG Immediate Post Op with CF Date of Surgery July 20, 2023 Pre & Post Diagnosis Operation Date: 07/20/23 07:15 Pre-Op Diagnosis: Cervical Disc Degeneration Post-Op Diagnosis: Cervical Disc Degeneration I identified the patient and participated in the time-out.: Yes Procedure Operation Date: 07/20/23 07:15 Actual Procedures p C5-C6 Cervical Disc Arthroplasty(Not Applicable) - Alex Bishop MD Surgeon Alex Bishop MD Registered Sales Assistant none Estimated Blood Loss 20 Findings Consistent with Post-Op Diagnosis Specimens Specimen Description: No specimen per surgeon
[2023-07-20] MEDS: fentaNYL citrate PF 100 MCG/2 ML VIAL IV PRN ×2 (11:52→12:04)
--- NOTE | 2023-07-20 12:00 | Fluoroscopy Report ---
FL cervical 2-3V CLINICAL HISTORY: C5-C6 cervical disc arthroplasty TECHNIQUE: 8 views were obtained with the C-arm in the OR with the above procedure. Total fluoroscopy time was 1 minute 5 seconds. Radiation dose was 27 mGy. Comparison: None available at the time of this dictation. FINDINGS/IMPRESSION: Intraoperative images were obtained of C5-C6 disc arthroplasty. Please correlate with intraoperative fluoroscopy and operative report. ACT 112: Negative or not required by law. Electronically signed by: Gaurav Figueroa M.D. 07/20/2023 11:59 AM
[2023-07-20] MEDS ORDERED: ACETAMINOPHEN 1,000 MG/100 ML VIAL IV PRN (13:46)
[2023-07-20] MEDS ORDERED: LORazepam 2 MG/1 ML VIAL IV PRN (13:46)
[2023-07-20] MEDS ORDERED: LORazepam 0.5 MG TAB PO PRN ×2 (13:46)
[2023-07-20] MEDS ORDERED: MAGNESIUM HYDROXIDE SUSP 30 ML UDC PO PRN (13:46)
[2023-07-20] MEDS ORDERED: NALOXONE HCL 0.4 MG/1 ML VIAL/CARP IV PRN (13:46)
[2023-07-20] MEDS ORDERED: LACTATED RINGER'S 1,000 ML IV SCH (13:46)
[2023-07-20] MEDS ORDERED: ACETAMINOPHEN 500 MG TAB PO PRN (13:46)
[2023-07-20] MEDS ORDERED: traMADol HCL 50 MG TABLET PO PRN (13:46)
[2023-07-20] MEDS ORDERED: METOCLOPRAMIDE HCL INJ 5 MG/ML 2 ML VIAL IV PRN (13:46)
[2023-07-20] MEDS ORDERED: ONDANSETRON 4 MG OD TAB PO PRN (13:46)
[2023-07-20] MEDS ORDERED: ALUMINUM/MAGNESIUM SUSP 30 ML UDC PO PRN (13:46)
[2023-07-20] MEDS ORDERED: DO NOT ADMINISTER PNEUMOCOCCAL VACCINE PRN (13:46)
[2023-07-20] MEDS ORDERED: RACEPINEPHRINE 2.25% NEBU SOLN 0.5 ML VIAL INH PRN (13:46)
[2023-07-20] MEDS ORDERED: bisacodyL 10 MG SUPP PR PRN (13:46)
[2023-07-20] MEDS ORDERED: diphenhydrAMINE Capsule 25 MG CAP PO PRN (13:46)
[2023-07-20] MEDS ORDERED: dexAMETHasone 8 MG in SYRINGE 0 ML IV PRN (13:46)
[2023-07-20] MEDS ORDERED: DO NOT ADMINISTER FLU VACCINE PRN (13:46)
[2023-07-20] MEDS ORDERED: SOD PHOSPHATE/SOD BIPHOSPHATE ENEMA 132 ML BTL PR PRN (13:46)
[2023-07-20] MEDS ORDERED: PROMETHAZINE HCL 12.5 MG in SODIUM CHLORIDE 0.9% 50 ML IV PRN (13:46)
[2023-07-20] MEDS ORDERED: FAMOTIDINE 20 MG TAB PO PRN (13:46)
[2023-07-20] MEDS ORDERED: hydrOXYzine HCl 25 MG TAB PO PRN (13:46)
--- NOTE | 2023-07-20 13:49 | Anesthesiology Progress Note ---
Date of Service July 20, 2023 Anesthesia Post Procedure Vital Signs Vital Signs: Temp Pulse Pulse Resp BP Pulse Ox O2 Del Method 07/20/23 13:15 92 H 17 135/96 93 Nasal Cannula 07/20/23 13:00 101 H 17 108/87 95 Nasal Cannula 07/20/23 12:45 82 18 148/76 H 93 Nasal Cannula 07/20/23 12:35 83 22 133/79 93 Nasal Cannula 07/20/23 12:25 36.4 C L 84 16 125/79 94 Nasal Cannula 07/20/23 12:15 85 18 128/78 94 Nasal Cannula 07/20/23 12:05 80 14 112/73 97 Oxymask 07/20/23 11:55 83 16 108/61 97 Oxymask 07/20/23 11:45 87 20 141/69 H 96 Oxymask 07/20/23 11:35 90 18 113/69 95 Oxymask 07/20/23 11:25 36.2 C L 85 16 130/51 L 95 Oxymask 07/20/23 05:59 Room Air 07/20/23 05:59 37.1 C 86 20 172/102 H 93 Room Air O2 Flow Rate 07/20/23 13:15 3 07/20/23 13:00 3 07/20/23 12:45 3 07/20/23 12:35 3 07/20/23 12:25 3 07/20/23 12:15 3 07/20/23 12:05 4 07/20/23 11:55 6 07/20/23 11:45 8 07/20/23 11:35 8 07/20/23 11:25 8 07/20/23 05:59 07/20/23 05:59 Pain Intensity Neck: Pain Intensity: 3 Transfer of Care Handoff Completed per policy Notes Mental Status: alert / awake / arousable and participated in evaluation Patient Amnestic to Procedure: Yes Nausea / Vomiting: adequately controlled Pain: adequately controlled Airway Patency, RR, SpO2: stable & adequate BP & HR: stable & adequate Hydration State: stable & adequate Anesthetic Complications: no major complications apparent
[2023-07-20] MEDS ORDERED: HYDROmorphone INJ 1 MG/ML SYRINGE IV PRN (13:59)
[2023-07-20] MEDS: HYDROCODONE/ACETAMOPHEN 5/325MG TAB PO PRN ×3 (14:28→23:03)
[2023-07-20] MEDS: MUPIROCIN 2% OINT 22 GM TUBE TOP SCH ×2 (15:32→20:08)
[2023-07-20] MEDS: ceFAZolin 2000MG 2,000 MG/15 ML SYR IV SCH (17:03)
[2023-07-20] MEDS: HYDROmorphone INJ 0.5 MG/0.5 ML SYR IV PRN (20:08)
[2023-07-20] MEDS ORDERED: DOCUSATE SODIUM/SENNA 50/8.6MG TAB PO SCH (21:00)
[2023-07-21] MEDS: ceFAZolin 2000MG 2,000 MG/15 ML SYR IV SCH (00:40)
[2023-07-21] MEDS: HYDROmorphone INJ 0.5 MG/0.5 ML SYR IV PRN (00:41)
[2023-07-21] MEDS ORDERED: POLYETHYLENE (MIRALAX) 17 GM PACK PO SCH (06:00)
[2023-07-21] MEDS: HYDROCODONE/ACETAMOPHEN 5/325MG TAB PO PRN ×2 (06:13→10:15)
[2023-07-21 06:50] LABS: Basophils # (auto) 0.02 K/uL (0.00-0.20); Basophils % (auto) 0.2 %; Eosinophils # (auto) 0.01 K/uL (0.00-0.50); Eosinophils % (auto) 0.1 %; Hematocrit (blood only) 39.9 % (37.0-47.0); Hemoglobin 13.3 g/dl (12.0-16.0); Immature Granulocytes # (auto) 0.05 K/uL (0.01-0.20); Immature Granulocytes % (auto) 0.5 %; Lymphocytes # (auto) 1.59 K/uL (1.20-3.40); Lymphocytes % (auto) 16.4 %; Mean Corpuscular Hemoglobin 30.7 pg (25.0-34.0); Mean Corpuscular Hgb Conc 33.3 g/dL (32.0-36.0); Mean Corpuscular Volume 92.1 fL (80.0-100.0); Mean Platelet Volume 9.9 fL (9.4-12.4); Monocytes # (auto) 0.91 K/uL (0.11-0.59); Monocytes % (auto) 9.4 %; Neutrophils # (auto) 7.09 K/uL (1.40-6.50); Neutrophils % (auto) 73.4 %; Platelet Count 262 K/uL (130-400); RDW Coefficient of Variation 13.4 % (11.5-14.5); RDW Standard Deviation 45.6 fL (36.4-46.3); Red Blood Count 4.33 M/uL (4.20-5.40); White Blood Count 9.67 K/ul (4.8-10.8)
[2023-07-21 07:15] LABS: BUN Creatinine Ratio 13.6 (10-20); Calcium 8.9 mg/dl (8.6-10.3); Creatinine Clr Calc Pharmacy 89.6 ml/min; Est GFR (African American) 90.9 ml/min; Est GFR (Non-African American) 78.4 ml/min; Potassium 4.4 mmol/L (3.5-5.1)
[2023-07-21] MEDS: MUPIROCIN 2% OINT 22 GM TUBE TOP SCH (08:21)
[2023-07-21] MEDS ORDERED: PANTOprazole 40 MG TAB PO SCH (09:00)
[2023-07-21] MEDS ORDERED: LOSARTAN POTASSIUM 50 MG TAB PO SCH (09:00)
[2023-07-21] MEDS ORDERED: VENLAFAXINE HCL XR 75 MG CAPXR PO SCH (09:00)
--- NOTE | 2023-07-21 10:50 | Discharge Summary ---
Date of Service July 21, 2023 Principal Diagnosis Same as "Discharge Diagnosis" noted below under Discharge Instructions. Discharge Data Consultations 07/20/23 13:46 Consult Hospitalist Routine Procedures Performed Operation Date: 07/20/23 07:15 Actual Procedures p C5-C6 Cervical Disc Arthroplasty(Not Applicable) - Alex Bishop MD Ordered Studies 07/20/23 FL cervical 2-3V Routine Hospital Course (1) Cervical disc disorder at C5-C6 level with radiculopathy: Surgical decompression and disc arthroplasty. (2) Cervical stenosis of spine: PG Care Time/CCT Total # of Minutes Spent Total Time Spent with Patient: Total time spent is greater than 50% in coordination of care (as documented) at patient's floor/unit and/or counseling patient: Discharge Plan Discharge Items Reason For Visit: Cervical Disc Degeneration Follow-up/Referrals: Sandi Seth MD [Primary Care Provider] - Medications and DC Order Prescriptions: No Action omeprazole 20 mg capsule,delayed release(DR/EC) 40 mg PO QAM Qty: 180 3RF simvastatin 20 mg tablet 20 mg PO HS Qty: 90 3RF venlafaxine [Effexor XR] 75 mg capsule,extended release 24hr 75 mg PO QAM Qty: 90 3RF losartan 50 mg tablet 50 mg PO QAM Qty: 90 3RF mupirocin 2 % ointment 1 applic topical TID Qty: 50 0RF Rx Instructions: Apply to nares three times a day for five days prior to surgery Super Cranberry 140-100 mg capsule 1 cap PO DAILY multivitamin [Multiple Vitamins] tablet 1 tab PO DAILY cholecalciferol (vitamin D3) 1,000 unit capsule 1,000 units PO DAILY lorazepam [Ativan] 0.5 mg tablet 0.5 mg PO BID PRN (Reason: anxiety) Qty: 60 0RF aspirin [Aspir-81] 81 mg tablet,delayed release (DR/EC) 81 mg PO Q2D Patient Comments: EVERY OTHER DAY Krames/Other Patient Handouts: DVT Post Op Prevention Admission Data Admit Date/Time: 07/20/23 11:37 Attending Provider: Alex Bishop Admit Provider: Alex Bishop Primary Care Provider: Sandi Seth Other Providers: Mehran Bell ; Linda Valero ; Matias Orozco Robert R. ; Giovanni Casillas ; Daryl Villanueva ; Ovi Torres ; Lela Garcia ; Regla Calderon ; Roberto Carlos Vergara ; Quiana Dennison ; Erick Taylor ; Taylor Palmer ; Eitan Aguilar ; Scout Gardner ; Linda Pineda ; Ananya Whitaker ; Narayan Purcell ; Matias Arauz ; Artis Olguin ; Mariah Gibson ; Naima Clemente ; Leoncio Sandoval ; [place] ; Vince Russell ; Renny Bauer ; Claudia Richardson ; Alexander Freeman ; Kasandra Vela ; Aida Guerra ; Ni Johnson ; Panchito Larson ; Giovanni Jiménez Other Interventions: Discharge Summary Assessment (RN) Last Done: 07/21/23 10:05
--- NOTE | 2023-07-21 11:35 | Hospitalist Consultation ---
Date of Consultation July 21, 2023 Assessment & Plan (1) Cervical disc disorder at C5-C6 level with radiculopathy: Postoperative day #1. Stable. Management per primary team (2) Hypertension: Stable. Continue current medical (3) Hyperlipidemia: Stable. Continue current medical manage (4) Acid reflux: Stable. Continue PPI therapy Plan Medically stable for discharge home today per primary service, July 21 History of Present Illness Reason for Consultation: Medical management Requesting Physician: Dr. Bishop Attending Physician: Alex Bishop MD History of Present Illness 63-year-old white female who is postoperative day 1 after cervical C5-C6 arthroplasty for cervical stenosis. She is medically stable at this time and will be discharged home today, July 21, by the primary service. The chart was reviewed. Labs are stable. She is on her usual oral medications Allergies Allergy/AdvReac Type Severity Reaction Status Date / Time lisinopril Allergy Intermediate Angioadema Verified 07/20/23 05:57 sulfamethoxazole Allergy Intermediate ITCHINESS Verified 07/20/23 05:57 [From Bactrim] trimethoprim [From Bactrim] Allergy Intermediate ITCHINESS Verified 07/20/23 05:57 Penicillins Allergy Unknown Childhood- Verified 07/20/23 05:57 unknown reaction Home Medications Medication Instructions Recorded Confirmed Type cholecalciferol (vitamin D3) 25 1,000 units PO DAILY 04/03/19 07/20/23 History mcg (1,000 unit) capsule cranberry concentrate-ascorbic 1 cap PO DAILY 04/03/19 07/20/23 History acid 140 mg-100 mg capsule (Super Cranberry) multivitamin (Multiple Vitamins 1 tab PO DAILY 04/03/19 07/20/23 History tablet) aspirin 81 mg tablet,delayed 81 mg PO Q2D 11/23/19 07/20/23 History release (Aspir-) omeprazole 20 mg capsule,delayed 40 mg PO QAM #180 caps 01/08/22 07/20/23 Rx release simvastatin 20 mg tablet 20 mg PO HS #90 tabs 11/11/22 07/20/23 Rx lorazepam 0.5 mg tablet (Ativan) 0.5 mg PO BID PRN anxiety #60 tabs 11/20/22 07/20/23 Rx venlafaxine 75 mg capsule,extended 75 mg PO QAM #90 caps 12/17/22 07/20/23 Rx release 24 hr (Effexor XR) losartan 50 mg tablet 50 mg PO QAM #90 tabs 05/10/23 07/20/23 Rx mupirocin 2 % topical ointment 1 applic topical TID #50 grams 07/13/23 07/20/23 Rx hydrocodone 5 mg-acetaminophen 325 1 tab PO Q6H PRN pain #30 tabs 07/21/23 Rx mg tablet Patient History Medical History (Updated 07/21/23 @ 10:48 by Alex Bishop MD) Acid reflux controlled, stable per pt Anxiety Cervical stenosis of spine Hx MRSA infection R LEG, JUN 2019; positive nasal swab 06/30/23 Hyperlipidemia Hypertension controlled, stable per pt Schatzki's ring Surgical History History of appendectomy History of section X 1 History of colonoscopy History of dilatation and curettage History of endoscopy WITH ESOPHAGEAL STRETCHING History of gynecologic surgery FOR ECTOPIC History of laparoscopic cholecystectomy History of total knee replacement RT History of urologic surgery URETHRAL DILATION [place] teeth removed Family History Aunt Family history of colon cancer Colorectal cancer Father Myocardial infarction Brother Myocardial infarction Family history of diabetes mellitus Other Family history of heart disease No family history of adverse response to anesthesia Denies family history of Ovarian cancer Breast cancer Social History Smoking Status: Never smoker Second Hand Exposure: Yes (hx as child); Do You Dip or Chew Tobacco: No; Tobacco Cessation Education Requested by Patient: No Hx Alcohol Use: Yes Hx Substance Use: No Preferred Language: Faroese Communication Ability: Effective Hearing Ability: Normal Liner Inserter Required: No Beliefs That Will Affect Care: None marital status: Current Living Situation: Spouse current occupational status: employed current occupation: [employer] How many Children do You have: 1 Other Information That Helps Us Care for You: No Feels Safe at Home: Yes Safety Concerns: Feels Safe At This Time Childhood Exposure to Second-Hand Smoke: Yes Diet: regular caffeine: Yes Dental Care, Regularly: Yes Physical Activity Frequency: 1-2 Times per Week Seatbelt Use: always Sunscreen Use: Yes Assistive Devices: None Review of Systems Review of Systems: Constitutional-no fever or chills ENT-no blurred vision, no double vision, no epistaxis, no sore throat Respiratory-no cough, no wheezing, no shortness of breath Cardiac-no palpitations, no chest pain, no syncope GI-no nausea, vomiting, diarrhea, melena, hematochezia -no urinary retention, no urinary incontinence, no dysuria, no hematuria Musculoskeletal-no joint pain, no muscle tenderness Skin-no bruising, no rashes, no pruritus Neuro-no isolated weakness, no paresthesia, no weakness Psych-no depression, no anxiety Physical Exam Physical Exam: General-alert and oriented x3, no fevers, no chills HEENT-head atraumatic and normocephalic,pupils equal and reactive to light, extraocular muscles intact Neck-no lymphadenopathy or thyromegaly, trachea midline. Anterior neck surgical site unremarkable Chest-clear to auscultation percussion. No rales wheezing or rhonchi Cardiac-regular rate and rhythm, normal S1 and S2 Abdomen-normal bowel sounds, nontender, no hepatosplenomegaly Extremities-no cyanosis, clubbing, or edema Neuro-cranial nerves II through XII intact, motor and sensory function within normal limits, strength symmetrical , no focal deficits Psych-normal affect, normal mood Results & Data Results & Data Vital Signs (Past 12 Hours) Vital Signs Temp Pulse Pulse Resp BP Pulse Ox O2 Del Method 07/21/23 10:50 92 H 18 94 Room Air 07/21/23 10:05 36.6 C 83 16 L 17 131/81 98 07/21/23 08:18 36.6 C 83 17 131/81 98 Room Air 07/21/23 07:31 98 H 18 94 Room Air 07/21/23 06:19 36.8 C 82 18 117/75 96 Nasal Cannula 07/21/23 04:22 36.7 C 78 18 116/72 95 Nasal Cannula 07/21/23 03:06 80 17 95 Nasal Cannula 07/21/23 02:23 36.8 C 88 18 130/77 96 Nasal Cannula 07/21/23 00:31 36.7 C 86 18 128/78 97 Nasal Cannula O2 Flow Rate 07/21/23 10:50 07/21/23 10:05 07/21/23 08:18 07/21/23 07:31 07/21/23 06:19 1 07/21/23 04:22 2 07/21/23 03:06 1 07/21/23 02:23 2 07/21/23 00:31 2 Laboratory Results 07/21/23 05:44 07/21/23 05:44 PG Care Time/CCT Total # of Minutes Spent Total Time Spent with Patient: Total time spent is greater than 50% in coordination of care (as documented) at patient's floor/unit and/or counseling patient: Coding Level of Care Code 60711 IN/OBS CONSULT LVL 4,60M Diagnoses Cervical disc disorder at C5-C6 level with radiculopathy M50.122 Hypertension I10 Hyperlipidemia E78.5 Acid reflux K21.9
--- NOTE | 2023-07-21 12:02 | Orthopedic Progress Note ---
Date of Service July 21, 2023 Subjective . Patient postop day 1 from C5-6 anterior decompression and artificial disc replacement. She reports some pain in the upper thoracic lower cervical area. She does note that both upper extremities have improvement of their preoperative symptoms. The hydrocodone she took relieves her symptoms this morning, no other issues. Exam reveals a minimal amount of drainage on the dressing but no other notable findings. Impression/plan: Postop day 1 from surgery as stated with improvement of preoperative symptoms. We will have the patient discharged today, she will follow-up in 2 to 3 weeks with radiographs, prescription for hydrocodone will be issued. Review of Systems All systems reviewed & are unremarkable except as noted in HPI & below. Physical Exam . Results & Data Results & Data Laboratory Results . Diagnostic Findings . PG Care Time/CCT Total # of Minutes Spent Total Time Spent with Patient: Total time spent is greater than 50% in coordination of care (as documented) at patient's floor/unit and/or counseling patient: Coding Level of Care Code 34424 Post Operative Follow-Up Diagnoses
--- NOTE | 2023-07-21 12:05 | Operative Report ---
PG Post Operative Report Pre & Post Diagnosis Operation Date: 07/20/23 07:15 Pre-Op Diagnosis: Cervical Disc Degeneration Post-Op Diagnosis: Cervical Disc Degeneration I identified the patient and participated in the time-out.: Yes Procedure Operation Date: 07/20/23 07:15 Actual Procedures p C5-C6 Cervical Disc Arthroplasty(Not Applicable) - Alex Bishop MD Surgeon Alex Bishop MD Pick Up Operator none Estimated Blood Loss 20 Findings Consistent with Post-Op Diagnosis Specimens none Description of Procedure 1. C5-6 anterior cervical decompression with placement of cervical artificial disc, Mobi-C 15 x 19 x 5 mm. Patient was taken the operating room and after adequate anesthesia was placed on the OSI flat top table in supine position. Positioning was then performed with keeping down the shoulders, and positioning of the cervical spine, images were then obtained for then marking the incision for the C5-6 level. Prep and drape was performed, I began the procedure with a transverse incision on the left side. Advancing down to the sternocleidomastoid, from there I have made progress advancing down to the anterior aspect of the cervical spine, this area was marked and confirmed on imaging for the proper level. I then utilized fluoroscopy to insert the distractor pins at C6 and C5 without issue. Operative microscope was then brought in after setting the retractors, and began the procedure with an anterior annulotomy of C5-6 level. I then moved through the discs level which was highly degenerative with combination of curettes and pituitaries until enough had been removed that I was able then to insert the paddle distractor. With this is able to gain proper elevation of the disc space and then continue with the decompression with the removal of cartilage from the endplates and disc material out to the uncinates on both sides. I used a high- speed bur to remove the posterior spondylosis and then curettes to mobilize the posterior aspect of the disc space down to the dura with continued removal of the spondylosis and disc material across the interspace until well decompressed. Trials were then inserted, I selected the size as noted which I felt fit the disc base the best, this particular device was then obtained and I tapped it into position with excellent position on AP and lateral views. Final images were obtained, I then removed the distractor pins with placement of Floseal and bone wax to the insertion sites, and irrigation of the operative site. No issues were noted, vancomycin powder was placed, I then closed the operative site with 3-0 Vicryl sutures in layers along with Steri-Strips and benzoin. The patient tolerated procedure well was taken recovery room centric condition. I attest to the content of the Intraoperative Record and any orders documented therein. Any exceptions are noted below.
== END 2023-07-21 12:23 | disposition home or self-care (01) ==
LOC: 3E 05:42 → ASU 05:42

== ENCOUNTER 2025-05-25 05:23 | Observation (INO) ==
--- NOTE | 2025-04-20 09:35 | PAT Medication Instructions ---
Medication Instructions Date of Service April 20, 2025 Home Medications Medication Instructions Recorded losartan 50 mg tablet 50 mg PO QAM #90 tabs 05/04/24 simvastatin 20 mg tablet 20 mg PO HS #90 tabs 12/15/24 buspirone 7.5 mg tablet 7.5 mg PO BID #60 tabs 02/15/25 omeprazole 20 mg capsule,delayed 20 mg PO QAM #90 caps 02/28/25 release escitalopram oxalate 20 mg tablet 20 mg PO DAILY #90 tabs 03/15/25 (Lexapro) nystatin 100,000 unit/mL oral See Rx Instructions PO DAILY 10 04/05/25 suspension days #60 mL cholecalciferol (vitamin D3) 25 mcg (1,000 unit) capsule 1,000 units PO QAM multivitamin (Multiple Vitamins tablet) 1 tab PO QAM losartan 50 mg tablet 50 mg PO QAM cranberry 500 mg capsule 500 mg PO QAM simvastatin 20 mg tablet 20 mg PO HS buspirone 7.5 mg tablet 7.5 mg PO BID omeprazole 20 mg capsule,delayed release 20 mg PO QAM escitalopram oxalate 20 mg tablet (Lexapro) 20 mg PO DAILY nystatin 100,000 unit/mL oral suspension See Rx Instructions PO DAILY Continue as directed escitalopram oxalate 20 mg tablet (Lexapro) 20 mg PO DAILY DO NOT take the morning of surgery cholecalciferol (vitamin D3) 25 mcg (1,000 unit) capsule 1,000 units PO QAM multivitamin (Multiple Vitamins tablet) 1 tab PO QAM losartan 50 mg tablet 50 mg PO QAM cranberry 500 mg capsule 500 mg PO QAM nystatin 100,000 unit/mL oral suspension See Rx Instructions PO DAILY Take morning of surgery With a small sip of water, OTHERWISE NOTHING TO EAT OR DRINK AFTER MIDNIGHT: buspirone 7.5 mg tablet 7.5 mg PO BID omeprazole 20 mg capsule,delayed release 20 mg PO QAM Take evening before surgery simvastatin 20 mg tablet 20 mg PO HS buspirone 7.5 mg tablet 7.5 mg PO BID Other Notes If you have any questions please call us at [phone] or [phone] or [phone] or [phone]
--- NOTE | 2025-05-02 08:45 | Anesthesiology Consultation ---
Date of Service May 02, 2025 Assessment & Plan (1) Encounter for pre-operative examination: - PCP office visit 05/02/25 [place]: "...Last SEROLOGY TECHNICIAN/PAP 05/2017.pt declining further follow up. risks vs benefits. Tdap 2017. Shingrix UTD. Flu shot in the fall. COVID UTD..." - Outpatient joint assessment: Patient is currently scheduled for inpatient pathway. If re-evaluated and patient/surgeon requests outpatient pathway, patient is not a candidate for outpatient joint program. Chart Review Chart Review: Acceptable Risk for Surgery and Patient seen in Pre Admission Testing Teaching & Discussion Pre-Anesthesia Teaching/Discussion Notes: Instructed NPO after midnight before surgery, except medications with 15 cc of water. Medication instructions provided according to the PAT guidelines. History Surgery Operation Date: 05/25/25 08:00 Proposed Procedures p Robotic Assisted Left Total Knee Arthroplasty - Jamin Nogueira, Height/Weight Height: 5 ft 2 in Weight: 121.9 kg Allergies Allergy/AdvReac Type Severity Reaction Status Date / Time lisinopril Allergy Intermediate Angioadema Verified 05/07/25 12:00 sulfamethoxazole Allergy Intermediate Itchiness Verified 05/07/25 12:00 [From Bactrim] trimethoprim [From Bactrim] Allergy Intermediate Itchiness Verified 05/07/25 12:00 Penicillins Allergy Unknown Childhood- Verified 05/07/25 12:00 unknown reaction Medications Home Medications Medication Instructions Recorded Confirmed Last Taken cholecalciferol (vitamin D3) 25 1,000 units PO QAM 04/03/19 05/07/25 12/05/24 mcg (1,000 unit) capsule multivitamin (Multiple Vitamins 1 tab PO QAM 04/03/19 05/07/25 12/05/24 tablet) cranberry 500 mg capsule 500 mg PO QAM 12/01/24 05/07/25 12/05/24 simvastatin 20 mg tablet 20 mg PO HS #90 tabs 12/15/24 05/07/25 Unknown buspirone 7.5 mg tablet 7.5 mg PO BID #60 tabs 02/15/25 05/07/25 Unknown omeprazole 20 mg capsule,delayed 20 mg PO QAM #90 caps 02/28/25 05/07/25 Unknown release escitalopram oxalate 20 mg tablet 20 mg PO DAILY #90 tabs 03/15/25 05/07/25 Unknown (Lexapro) nystatin 100,000 unit/mL oral See Rx Instructions PO DAILY 10 04/05/25 05/07/25 Unknown suspension days #60 mL losartan 50 mg tablet 50 mg PO QAM #90 tabs 04/30/25 05/07/25 Unknown Past Medical History Medical History Depression Osteoarthritis Morbid obesity HTN (hypertension) Hyperlipidemia History of anxiety Hx of gastroesophageal reflux (GERD) Hx MRSA infection (~06/2023) Schatzki's ring Patient denies h/o stroke, seizures, heart attack, heart failure, DM, blood clots/DVTs or blood transfusions. Exercise / Class Metabolic Activity III < 4 Walking/Shop/Light housework (denies chest discomfort or shortness of breath with usual activities) Past Family History Family History Aunt Family history of colon cancer Colorectal cancer Father Myocardial infarction Brother Myocardial infarction Family history of diabetes mellitus Other Family history of heart disease No family history of adverse response to anesthesia Denies family history of Ovarian cancer Breast cancer Past Surgical History Surgical History History of total knee replacement Hx of sinus surgery (11/2024) History of carpal tunnel release of both wrists Hx of cervical spine surgery History of dilatation and curettage [place] teeth removed History of endoscopy History of colonoscopy History of urologic surgery History of gynecologic surgery History of section History of laparoscopic cholecystectomy History of appendectomy Past Anesthesia History No Hx of Anesthesia Complications and No Family Hx of Anesthesia Complications History of PONV No Hx of PONV and No Hx of Motion Sickness Social History Smoking Status: Never smoker Do You Dip or Chew Tobacco: No Hx Alcohol Use: No alcohol intake frequency: other Hx Substance Use: No substance use type: does not use Review of Systems Snoring, denies witnessed apneas. No previous sleep study. Patient denies chest pain, shortness of breath, dyspnea on exertion, fever, chills, cough, wheezing, or palpitations. Physical Exam Vital Signs Vitals BP 102/68 P 66 TEMP 98.5 SP02 96% on RA RESP 18 Physical Patient resting comfortably in chair in no acute distress, alert and oriented, responding appropriately throughout visit Full cervical extension range of motion without pain TMD 3.5 finger breadths Mallampati Score 3 Dentition: several caps, denies chipped or loose teeth, crowns, implants or bridges Lungs: normal respiratory effort. Good air movement, clear throughout to auscultation, no adventitious breath sounds Cardiac: regular rate and rhythm, no murmurs noted Carotid arteries: negative bruit bilat Lab Results Anesthesia Preop Results Results Anesthesia Widget: WBC 5.59 K/ul (4.8-10.8) 05/02/25 Hgb 14.2 g/dl (12.0-16.0) 05/02/25 Hct 42.8 % (37.0-47.0) 05/02/25 Plt 257 K/uL (130-400) 05/02/25 Na 138 mmol/L (136-145) 05/02/25 K 4.3 mmol/L (3.5-5.1) 05/02/25 Cl 103 mmol/L (98-107) 05/02/25 CO2 31 mmol/L (21-32) 05/02/25 BUN 20 mg/dl (6-23) 05/02/25 Creat 0.81 mg/dl (0.6-1.2) 05/02/25 Glucose Level 95 mg/dl (70-99(Fasting)) 05/02/25 PT 9.8 Seconds (9.0-12.0) 05/02/25 PTT 28 Seconds (21-31) 05/02/25 INR 0.9 (0.9-1.1) 05/02/25 HA1c 5.5 % (4.5-5.6) 05/07/25 Blood Type O Positive 05/02/25 Antibody Screen NEGATIVE 05/02/25 Testing Electrocardiogram Date: 12/07/24 NSR, rate 69 bpm Low voltage QRS Chest X-Ray Date: 05/02/25 No acute findings.
--- NOTE | 2025-05-23 12:48 | History & Physical Report ---
Date of Service May 23, 2025 Assessment & Plan (1) Osteoarthritis of left knee: We will proceed with a left total knee arthroplasty. Postoperatively, she will be started on aspirin for DVT prophylaxis and kept overnight in the hospital for postop medical management. She plans to use energy physical therapy at discharge. History of Present Illness Chief Complaint: Osteoarthritis of the left knee . Primary Care Provider: Sandi Seth MD Venus is a pleasant 64-year-old female who has been dealing with chronic increasing left knee pain. I did a right knee replacement on her about 5 years ago. She has done okay with that. She still has a little bit of pain. She is now dealing with a lot of left knee pain. X-rays clinical examination of the diagnostic for advanced osteoarthritis of the left knee. After failing conservative treatment, she has elected to proceed with a left total knee arthroplasty. . Allergies Allergy/AdvReac Type Severity Reaction Status Date / Time lisinopril Allergy Intermediate Angioadema Verified 05/07/25 12:00 sulfamethoxazole Allergy Intermediate Itchiness Verified 05/07/25 12:00 [From Bactrim] trimethoprim [From Bactrim] Allergy Intermediate Itchiness Verified 05/07/25 12:00 Penicillins Allergy Unknown Childhood- Verified 05/07/25 12:00 unknown reaction Home Medications Medication Instructions Recorded Confirmed Type cholecalciferol (vitamin D3) 25 1,000 units PO QAM 04/03/19 05/07/25 History mcg (1,000 unit) capsule multivitamin (Multiple Vitamins 1 tab PO QAM 04/03/19 05/07/25 History tablet) cranberry 500 mg capsule 500 mg PO QAM 12/01/24 05/07/25 History simvastatin 20 mg tablet 20 mg PO HS #90 tabs 12/15/24 05/07/25 Rx buspirone 7.5 mg tablet 7.5 mg PO BID #60 tabs 02/15/25 05/07/25 Rx omeprazole 20 mg capsule,delayed 20 mg PO QAM #90 caps 02/28/25 05/07/25 Rx release escitalopram oxalate 20 mg tablet 20 mg PO DAILY #90 tabs 03/15/25 05/07/25 Rx (Lexapro) nystatin 100,000 unit/mL oral See Rx Instructions PO DAILY 10 04/05/25 05/07/25 Rx suspension days #60 mL losartan 50 mg tablet 50 mg PO QAM #90 tabs 04/30/25 05/07/25 Rx Past Med/Surg History Problem List Depression with anxiety Hypertrophy of nasal turbinates Deviated nasal septum Mucous retention cyst of maxillary sinus Recurrent sinusitis Cervical disc disorder at C5-C6 level with radiculopathy Cervical stenosis of spine Paresthesia of both hands Carpal tunnel syndrome, bilateral Mass of right axilla Encounter for pre-operative examination Sleep disturbance Pes anserinus bursitis of right knee Morbid obesity Acid reflux (Chronic) Osteoarthritis Hypertension (Chronic) Hyperlipidemia (Chronic) Medical History Depression Osteoarthritis Morbid obesity HTN (hypertension) controlled, stable per pt Hyperlipidemia History of anxiety Hx of gastroesophageal reflux (GERD) controlled, stable per pt Hx MRSA infection (~06/2023) RLE 06/2019, positive nasal swab 06/30/23 Schatzki's ring Surgical History History of total knee replacement Right Hx of sinus surgery (11/2024) History of carpal tunnel release of both wrists Hx of cervical spine surgery 06/2023, C5-C6, full ROM History of dilatation and curettage [place] teeth removed History of endoscopy + esophageal stretching History of colonoscopy History of urologic surgery Urethral dilation History of gynecologic surgery R/t ectopic History of section x1 History of laparoscopic cholecystectomy History of appendectomy Family History Aunt Family history of colon cancer Colorectal cancer Father Myocardial infarction Brother Myocardial infarction Family history of diabetes mellitus Other Family history of heart disease No family history of adverse response to anesthesia Denies family history of Ovarian cancer Breast cancer Social History Smoking Status: Never smoker Second Hand Exposure: Yes (hx growing up); Do You Dip or Chew Tobacco: No; Hx Alcohol Use: No Hx Substance Use: No Preferred Language: Greek Communication Ability: Effective Visual Impairment: No Limitations Hearing Ability: Normal Sawsmith Required: No Beliefs That Will Affect Care: None marital status: Current Living Situation: Spouse current occupational status: employed current occupation: [employer] How many Children do You have: 1 Feels Safe at Home: Yes Childhood Exposure to Second-Hand Smoke: Yes Diet: regular caffeine: Yes Dental Care, Regularly: Yes Physical Activity Frequency: 1-2 Times per Week Seatbelt Use: always Sunscreen Use: Yes Assistive Devices: Glasses Review of Systems All systems reviewed & are unremarkable except as noted in HPI & below. Physical Exam On physical exam of the left knee, she does have a varus deformity. She has tenderness palpation of the distal medial femoral condyle and over the medial joint line.. Constitutional WD/WN, vitals as above Eyes PERRL, conjunctivae normal, anicteric sclerae ENMT external ear and nose normal, oropharynx normal Neck trachea midline, no thyromegaly Respiratory normal respiratory effort Cardiovascular RRR, no murmur, no edema Gastrointestinal (Abdomen) normal bowel sounds, soft, nontender, no hepatosplenomegaly Psychiatric A+Ox3, euthymic affect Results & Data Results & Data Laboratory Results . Diagnostic Findings X-rays of the left knee show medial compartmental arthritis with joint space narrowing, osteophyte remission, and [id number] articulation.. PG Care Time/CCT Total # of Minutes Spent Total Time Spent with Patient: Total time spent is greater than 50% in coordination of care (as documented) at patient's floor/unit and/or counseling patient: Coding Level of Care Code None Diagnoses Osteoarthritis of left knee M17.12
[2025-05-25] MEDS: ACETAMINOPHEN 500 MG TAB PO SCH ×2 (05:53→14:27)
[2025-05-25] MEDS: LR 60ML/HR IV SCH (05:54)
[2025-05-25] MEDS: dexAMETHasone**PF** 10 MG/ML VIAL IV SCH (05:54)
[2025-05-25] MEDS: GABAPENTIN 600 MG DOSE PO SCH (05:54)
[2025-05-25] MEDS: FAMOTIDINE 20 MG TAB PO SCH (05:54)
[2025-05-25] MEDS: LR 15ML/HR IV SCH (05:54)
[2025-05-25] MEDS ORDERED: ROPIVACAINE 0.5% 5 MG/ML 30 ML VIAL ONE (06:08)
[2025-05-25] MEDS ORDERED: MIDAZOLAM HCL 1 MG/ML 2ML VIAL ONE ×2 (06:34→06:43)
[2025-05-25] MEDS ORDERED: ONDANSETRON INJ 2 MG/ML 2 ML VIAL ONE ×2 (06:38→08:51)
[2025-05-25] MEDS ORDERED: LIDOCAINE 2% 2 ML VIAL/AMP(20MG/ML) INFIL ONE (06:38)
[2025-05-25] MEDS ORDERED: PROPOFOL IV EMULSION 10 MG/ML 20 ML VIAL IV ONE ×2 (06:38→08:51)
[2025-05-25] MEDS ORDERED: ATROPINE SULFATE 0.1 MG/ML 10ML SYR IV PRN (06:40)
[2025-05-25] MEDS ORDERED: HYDROmorphone INJ 2 MG/ML SYR/VIAL IV PRN (06:40)
[2025-05-25] MEDS ORDERED: ONDANSETRON INJ 2 MG/ML 2 ML VIAL IV PRN ×2 (06:40→10:25)
[2025-05-25] MEDS: TRANEXAMIC ACID 1,000 MG **IV Pre-op IV SCH (06:45)
--- NOTE | 2025-05-25 06:47 | History & Physical Bridge Note ---
Date of Service May 25, 2025 History & Physical Bridge Note I have examined the patient, reviewed the History & Physical and in the interval since the performance of the History & Physical I have noted the following changes of clinical significance: no changes noted
[2025-05-25] MEDS: ceFAZolin 3000MG 3,000 MG/72.5 ML BAG IV SCH (07:05)
[2025-05-25] MEDS ORDERED: KETAMINE HCL 10MG/ML SYR ONE (07:17)
[2025-05-25] MEDS: ROPIV 0.5% 246mg, Ketorolac 30mg, EPINEPHrine 0.5mg in NSS INFIL SCH (07:51)
[2025-05-25] MEDS: ORTHO JOINT ANESTHETIC ONE (07:51)
--- NOTE | 2025-05-25 08:49 | Operative Report ---
PG Post Operative Report Pre & Post Diagnosis Operation Date: 05/25/25 07:00 Pre-Op Diagnosis: Left Knee Arthritis Post-Op Diagnosis: Left Knee Arthritis I identified the patient and participated in the time-out.: Yes Procedure Operation Date: 05/25/25 07:00 Actual Procedures p Robotic Assisted Left Total Knee Arthroplasty(Left) - Jamin Nogueira DO Surgeon Jamin Nogueira DO Card Reader Mick Zapien PA-C Estimated Blood Loss 30 Findings Consistent with Post-Op Diagnosis Specimens Left femoral and tibial bone Description of Procedure Implants used: I used a [employer]na Persona total knee arthroplasty system with a size 7 narrow femur, D tibia, 25 oval patella, and a size 12 CPS polyethylene bearing. All components were cemented in place with Biomet cement. Venus arrived [facility] for the above procedure. She was seen in the preoperative holding area and the operative extremity was identified and signed. She was given a preoperative antibiotic, TXA, a spinal anesthetic and an adductor nerve block. She was taken back to the operating room and laid on the table in supine position. She was given basic sedation. The operative knee was then prepped and draped in sterile fashion. A timeout was done, and the patient and the operative extremity was properly identified. A midline incision was made directly over the patella. Dissection was taken down to the extensor mechanism. A medial parapatellar arthrotomy was used. The medial retinaculum was released and the fat pad was mostly excised. The knee was flexed and the ACL, PCL, and meniscus were removed. The alignment of the knee replacement was assisted with a [employer] robotic knee. The femoral array was pinned in the distal femur and the tibial array was pinned using a percutaneous technique in the upper shaft of the tibia. The robot was appropriately calibrated and the structure of the knee was mapped out. The components were then manipulated on the screen to account for any malalignment and to assist in gap balancing. Once I was happy with the placement of the components on the screen, a distal femoral cutting guide was brought in place. The distal femur was then resected. The femur measured to be a size 7. A 4-in-1 cutting block was then put into place by the robot and 2 peg holes were drilled. The 4-in-1 cutting block was then impacted into place and anterior, posterior, and chamfer cuts were made. The cutting block was then brought down to the tibia and pinned into place. The proximal tibia was then resected. The posterior aspect of the knee was then opened up and any additional meniscus fragments and osteophytes were removed. The tibia measured to be a size D. The tibial plate was then placed in the appropriate rotation and the tibia was drilled and punched. Trial components were then placed. The patella was then everted and 9 mm was resected off the posterior aspect of the patella. The patella measured to be a size 25 oval. 3 peg holes were then drilled. A trial patella was placed. A size 12 CPS polyethylene insert was then trialed. The knee was brought through a full range of motion and felt to be stable. Trial components were then removed. The surrounding soft tissues were injected with 100 cc of an orthopedic pain control cocktail. All components were then cemented into place with Biomet cement. The final polyethylene insert was then snapped into place. Once cement was dry the tourniquet was deflated. Hemostasis was obtained. A dilute betadyne lavage was then done for 3 minutes. The joint was then irrigated with normal saline solution. The medial parapatellar arthrotomy was then closed with #1 Vicryl suture. The skin was closed with 2-0 Vicryl, 3-0V lock suture, and Chandrika zip line. A soft compressive dressing was placed. She was then transferred to a hospital bed and taken to the postanesthesia care unit in stable condition. She tolerated the procedure well. Mick Zapien PA-C, was present for the entire procedure. He was critical for patient positioning, prepping, draping, retraction exposure, wound closure and application of sterile dressing. I attest to the content of the Intraoperative Record and any orders documented therein. Any exceptions are noted below.
[2025-05-25] MEDS ORDERED: KETOROLAC 30 MG/ML VIAL ONE (08:54)
--- NOTE | 2025-05-25 09:40 | XRay Report ---
XR knee LT 1 or 2V routine CLINICAL HISTORY: Surgical Post Op COMPARISON: None FINDINGS: AP and crosstable lateral views of the left knee were performed. A total knee arthroplasty is noted with satisfactory positioning and alignment of the prosthetic components. Postsurgical burrell ges are noted in the soft tissues. IMPRESSION: Satisfactory postop appearance ACT [id number]: Negative or not required by law. Electronically signed by: Sonia Ward M.D. 05/25/2025 9:39 AM
--- NOTE | 2025-05-25 09:43 | Anesthesiology Progress Note ---
Date of Service May 25, 2025 Anesthesia Post Procedure Vital Signs Vital Signs: Temp Pulse Pulse Resp BP Pulse Ox O2 Del Method 05/25/25 09:35 36.4 C L 62 17 128/71 95 Room Air 05/25/25 09:25 63 17 120/62 98 Oxymask 05/25/25 09:16 36.5 C 74 17 117/77 96 Oxymask 05/25/25 05:40 73 20 136/88 95 Room Air 05/25/25 05:35 36.9 C 76 20 152/87 H 95 Room Air O2 Flow Rate 05/25/25 09:35 05/25/25 09:25 5 05/25/25 09:16 5 05/25/25 05:40 05/25/25 05:35 Transfer of Care Handoff Completed per policy Notes Mental Status: alert / awake / arousable and participated in evaluation Patient Amnestic to Procedure: Yes Nausea / Vomiting: adequately controlled Pain: adequately controlled Airway Patency, RR, SpO2: stable & adequate BP & HR: stable & adequate Hydration State: stable & adequate Anesthetic Complications: no major complications apparent and Pt Satisfied with anesthetic care
[2025-05-25] MEDS ORDERED: HYDROmorphone INJ 0.5 MG/0.5 ML SYR IV PRN (10:25)
[2025-05-25] MEDS ORDERED: NALOXONE HCL 0.4 MG/1 ML VIAL/CARP IV PRN (10:25)
[2025-05-25] MEDS ORDERED: diphenhydrAMINE Capsule 25 MG CAP PO PRN (10:25)
[2025-05-25] MEDS ORDERED: METOCLOPRAMIDE HCL INJ 5 MG/ML 2 ML VIAL IV PRN (10:25)
[2025-05-25] MEDS ORDERED: MAGNESIUM HYDROXIDE SUSP 30 ML UDC PO PRN (10:25)
[2025-05-25] MEDS: SODIUM CHLORIDE 0.9% 1,000 ML IV SCH (10:41)
[2025-05-25] MEDS: KETOROLAC TROMETHAMINE 15 MG/ML VIAL IV SCH (12:22)
[2025-05-25] MEDS: DOCUSATE SODIUM 100 MG CAP PO SCH (12:23)
[2025-05-25] MEDS: ASPIRIN 81 MG ECTAB PO SCH (12:23)
[2025-05-25] MEDS: LOSARTAN POTASSIUM 50 MG TAB PO SCH (12:23)
[2025-05-25] MEDS: ESCITALOPRAM OXALATE 20 MG TAB PO SCH (12:23)
[2025-05-25] MEDS: MULTIVITAMIN TAB PO SCH (12:23)
[2025-05-25] MEDS: SIMVASTATIN 20 MG TAB PO SCH (21:46)
[2025-05-25] MEDS: SENNA 8.6 MG TAB PO SCH (21:47)
[2025-05-26 06:56] VITALS: PULSE 67; RESP 18; TEMP 98.4; O2SAT 96
--- NOTE | 2025-05-26 08:38 | Orthopedic Progress Note ---
Date of Service May 26, 2025 Assessment & Plan (1) Status post total left knee replacement: Overall she is doing very well. She is not having much pain in the left knee. She will be seen by physical therapy today for ambulation and range of motion exercises. She is on aspirin for DVT prophylaxis. The nursing staff can change her dressing after physical therapy. She can be discharged to home later today. She will follow-up orthopedics in 2 weeks. Alex Brand was seen and examined at bedside this morning. Overall she is doing fairly well. She is not having much pain in the left knee. She has been up and ambulating to the bathroom. She has no complaints.. Review of Systems All systems reviewed & are unremarkable except as noted in HPI & below. Physical Exam On physical exam of the left knee, the dressing is clean and dry. Her leg is out in full extension. She has active dorsiflexion plantarflexion of her left ankle.. Results & Data Results & Data Laboratory Results . Diagnostic Findings Postoperative x-rays of the left knee show the prosthesis to be in anatomic alignment without any evidence of fracture complication, or loosening.. PG Care Time/CCT Total # of Minutes Spent Total Time Spent with Patient: Total time spent is greater than 50% in coordination of care (as documented) at patient's floor/unit and/or counseling patient: Coding Level of Care Code 44773 Post Operative Follow-Up Diagnoses Status post total left knee replacement Z96.652
[2025-05-26 10:57] VITALS: BP 118/73
== END 2025-05-26 11:15 | disposition home or self-care (01) ==
LOC: ASU 05:23 → 3E 05:23